=== PATIENT | male | born 1965 | race Caucasian/White ===

== ENCOUNTER 2023-02-25 09:52 | Emergency (ER) | payer MEDICARE, SELFPAY ==
[2023-02-25 09:53] VITALS: BP 153/75; PULSE 93; RESP 16; TEMP 36.4; O2SAT 99; BMI 29.2
--- NOTE | 2023-02-25 10:32 | EX.ED.UPPERE ---
HPI History of Present Illness Chief Complaint: Laceration Detail of Chief Complaint: Laceration left index finger concern for exposed distal phalanx Informant: patient Occured/Mechanism Comment: Patient presents because of injury to tip of left index finger while cutting carrots. Onset/Context/Timing Onset: Hours Context: Sudden Onset Timing: - (Bleeding is controlled) Quality of Pain: Throbbing Location: Tip of left index finger Current Severity: Gone Maximum Severity: Moderate Worsened by: Initial injury Relieved by: not applicable Associated Symptoms Associated Symptoms: Negative for Parasthesia, Weakness or Loss of Funtion Narrative Narrative: Patient is a 57-year-old [id number] male presents with injury to his left index finger. Tetanus was 3 to 4 years ago. He went to urgent care. Urgent care sent him to the emergency room because they were concerned that the distal phalanx was exposed. He denies paresthesia, anesthesia medics. He denies limitation of movement. Tetanus Immunization: <5 years Prior similar symptoms: No Recent Illness/Hospitalization: No PFSH PFSH Allergy/AdvReac Type Severity Reaction Status Date / Time Penicillins Allergy Unknown PT UNSURE Verified 02/25/23 09:53 OF REACTION Social History (Updated 02/25/23 @ 10:[address] Josh Roche MD) household members: spouse Smoking Status: Never smoker substance use type: does not use ROS ROS ED Constitutional Constitutional ED: Denies chills, fever(s), subjective, sweats or weight loss Integumentary Reports other Details: Avulsion skin distal tip left index finger Neurologic Neurologic: Denies paresthesias or weakness Hematologic/Lymphatic Hematologic/Lymphatic: Reports easy bleeding and easy bruising EXAM Physical Exam Const Vital Signs: 02/25/23 09:53 Temperature 97.6 F L Temperature Source Temporal Pulse Rate 93 Respiratory Rate 16 Blood Pressure 153/75 H Blood Pressure Mean 101 Pulse Ox 99 Oxygen Delivery Method Room Air Positive well nourished and well developed General Appearance ED: well developed and NAD HEENT normocephalic and atraumatic Eyes PERRL and EOMs intact bilaterally Resp normal respiratory effort Cardio regular rate and regular rhythm Cardio Narrative: Radial pulses 2+ on the left. Extremity Extremity Narrative: Circular avulsed area There is a left index finger that is 5 to 6 mm in diameter. The extensor and flexor mechanisms are intact. There is no subungual hematoma. Capillary fill is normal. Sensation is normal. Neuro oriented x3 and CN's II-XII intact bilaterally Sensorium / Orientation: alert Skin Skin Narrative: Avulsed tissue as described under the extremity portion of the chart MDM MDM MDM Narrative Medical decision making narrative: Patient has avulsed/partially obtained soft tissue tip left index finger. Treatment is cleansed wound dressing and follow-up as needed. Patient was informed that it will take several weeks for this to granulate in. Of note patient is not on antithrombotic or anticoagulant. Discharge Plan Triage Chief Complaint: Laceration ED Provider: Josh Roche Dx/Rx/DC Orders Clinical Impression: Traumatic amputation of tip of left index finger Instructions: Finger Tip Amputation Open Tx Primary Care Provider: Ana Vela NP Referrals: NOT,DEFINED [Non-Staff] - Ana Vela NP, [employer] [Primary Care Provider] - 10-14 Days if not better Disposition Disposition: Home, Self Care Discharge Date/Time: 02/25/23 11:06
== END 2023-02-25 11:06 | disposition home or self-care (01) ==
LOC: ED 11:00
PROVIDERS: Emergency Provider Emergency Medicine; PCP Internal Medicine; Visit Provider Emergency Medicine
DX: S68.111A Complete traumatic metacarpophalangeal amputation of left index finger, initial encounter (principal); X58.XXXA Exposure to other specified factors, initial encounter
CPT/HCPCS: 99282

== ENCOUNTER 2023-03-13 13:21 | Emergency (ER) | payer MEDICARE, SELFPAY ==
[2023-03-13 13:21] VITALS: BP 110/81; PULSE 105; RESP 20; TEMP 36.8; O2SAT 98; BMI 29.2
== END 2023-03-13 15:04 | disposition left against medical advice (07) ==
LOC: ED 15:11
PROVIDERS: PCP Internal Medicine
DX: Z53.21 Procedure and treatment not carried out due to patient leaving prior to being seen by health care provider (principal)

== ENCOUNTER 2023-04-02 11:35 | Outpatient (RCR) | payer MEDICARE, SELFPAY ==
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
--- NOTE | 2023-06-24 19:49 | HP.PTDCNRP_ITS ---
Patient Information Patient Information: OLIVER AMADOR was seen in my office for initial evaluation on 04/02/23. The following Plan of Care was established for this patient: POC Established Initial Frequency: 2x /Week Initial Duration: 4-6 Weeks Anticipated Interventions Patient/Client Instruction: Educate patient on: Condition, Plan of Care and Risk Factors For the Purpose of:: To improve self management Therapeutic Exercise to Include: Strength training, Body mechanics, Postural training, Flexibilty training, Neuromotor development and Dynamic Lumbar Stabilization For the Purpose of:: To decrease pain, To increase ROM, To improve muscle performance and motor function, To increase tolerance to activity/condition/ position and To improve ability of physical actions for home/community/work/leisure Manual Therapy Techniques to Include: Soft tissue mobilization For the Purpose of:: To decrease pain and To improve nutrient delivery to tissue Cryotherapy (ice pack, ice massage): Yes Thermo therapy (hot pack): Yes For the Purpose of:: To decrease pain, To decrease swelling/inflammation and To improve nutrient delivery to tissue Last Seen Last Seen: This patient was last seen in our office 04/02/23. Pertinent comments regarding their Physical therapy will appear below: This patient has not returned to Physical Therapy and is appropriate to return to MD for further follow-up as needed. At this point I will be discontinuing this patient from physical therapy. I would be happy to see this patient again in the future if found appropriate by the physician. Thank you! Hillary Strickland, PT, Cert MDT Balance/Gait/Functional tests Balance/Special Test Scores Lower Extremity Functional Score: 46
== END 2023-04-02 19:00 | disposition home or self-care (01) ==
LOC: PT 11:35
PROVIDERS: PCP Internal Medicine; Referring Provider Internal Medicine; Visit Provider Internal Medicine
DX: M25.551 Pain in right hip (principal); M25.552 Pain in left hip
CPT/HCPCS: 97162